=== PATIENT | female | born 1940 | race Caucasian/White ===

== ENCOUNTER 2023-01-04 09:00 | Outpatient (RCR) | payer MEDICARE, BC, SELFPAY ==
--- NOTE | 2022-09-21 16:04 | PT.OPEX ---
PT [place] Outpatient Eval PT [facility] Outpatient Eval Start: 09/20/22 15:48 Freq: Status: Active Protocol: Document 09/20/22 16:03 DANAE (Rec: 09/20/22 16:45 DANAE [id number]) E-signed By Lizet Virk PT Physical Therapy Outpatient Evaluation Insurance Information Recert Due Date 12/18/22 Insurance Name Medicare B,Blue Cross/Blue Shield Medical Diagnosis CERVICAL RADICULOPATHY M54.12 Treating Diagnosis CERVICALGIA M54.2 WEAKNESS [address]53[address] LONNIE PLATA Subjective Subjective PATIENT IS HERE TODAY WITH C/O NECK PAIN THAT RADIATES TO HER LATERAL SHOULDER AND TINGLES INTO HER LEFT JAW LINE . SHE STATES, IT WENT AWAY BUT THEN CAME BACK WHEN THE ASSISTANT BRAND MANAGER HAD ME RAISE MY HEAD FOR AN ECHOCARDIOGRAM AND IT CAME BACK. Pain Comments -08/20 Date of Last Physician Visit 08/24/22 Current Work Status Retired Occupation RETIRED [employer] Preferred Name STEVEN Precautions Therapy Limitations/Systems Review Not Limited Objective Other/Pertinent Objective SPINAL ALIGNMENT/POSTURE : MODERATE FWD HEAD POSTURING WITH SIGNIFICANT THORACIC KYPHOSIS CERVICAL ROM Flexion: WFL Extension: 25% LIMITED Right Rotation: 50%LIMITED Left Rotation: 25% LIMITED Right side bend: 50% LIMITED Left Side bend: 50%LIMITED SHOULDER AROMl: WFL NECK/SHOULDER MMT: Deep neck flexor endurance test: 5SEC Shoulder shrug: R 4/5 L 4/5 Shoulder flexion: R 4-/5 L 4-/ 5 Shoulder abduction: R 4/5 L 4/ 5 Shoulder External Rotation: R 4/5 L 4/5 Shoulder Internal Rotation: R 4/5 L 4/5 Elbow Flexion: R 5/5 L 5/5 Elbow Ext: R 5/5 L 5/5 Thumb Ext: R 4/5 L 4/5 FInger Abd: R 4/5 L 4/5 SPECIAL TEST Spurlings Test: (-) Cervical distraction test: (- ) Neural Tension Test(Median/ Ulnar/Radial): (-) Bakody Sign(C4-C6 Radiculopathy): (+) Vertebral Artery Test: SharpPursher Test (transverse ligament):(-) Alar Lig Test: (-) Shoulder impingement HawkinsKennedy Test: (-) Neer Test: (-) Romy Test: (-) Horizontal Adduction Test: (-) JOINT MOBILITY/PALPATION: LEFT SIDE POINT TENDERNESS ABOUT THE LOWER CERVICAL SPINE/ FACETS, SIDE GLIDE RIGHT TO LEFT PAIN WITH RROT, RSB, FLEX TX: WALK 3 MIN STS X 5 CHIN TUCK X 10 HOLD 5 SEC R/L ROTATION 3 X 10 SEC SHOULDER BCK E[place] 20X SCAP SQUEEZE X 15 HOLD 3 SEC Functional Test Performed & Score 30 SEC STS 4 TUG 25SEC TINETTI 8 Assessment Assessment/Impression PATIENT IS [address] Jennifer PLATA REFERRED TO PHYSICAL THERAPY TO EVAL AND TX CERVICAL RADICULOPATHY. PMHX INCLUDES BUT NOT LIMITED TO AFIB W/COUMADIN, OSTEOPENIA , HTN, CATARACTS, HLD, H/O RIGHT TKA(5YRS), B RTC (>10YRS ). PATIENT LIVES ALONE WITH IN A TWO STORY HOME WITH FINISHED BASEMENT. SHE HAS 1-2 STEPS TO ENTER AND RIGHT ASCENDING RAILING AND LIMITED NEED FOR BASEMENT UNLESS SHE NEEDS SOMETHING FROM [facility]. SHE DOES HER OWN GROCERY SHOPPING BUT HAS A DIFFICULTY RETURNING WITH BAGS AND PUTTING ITEMS AWAY. SHE C/O PAIN W/IN 5 MINUTES OF AWAKENING AND WHEN ROTATING TWD HER LEFT SHOULDER BUT WITH MY ASSESSMENT TODAY SHE HAD PAIN ON LEFT SIDE WITH RIGHT ROTATION, RIGHT SIDE BEND AND CERVICAL FLEXION. THIS INDICATES FACET OPENING CHALLENGE WHICH IS CONSISTENT WITH THE FACET ARTHROPATHY NOTED. SHE DESCRIBES A SEDENTARY LIFESTYLE BUT DOES GET OUT TO PLAY CARDS/BINGO WITH HER GIRLFRIENDS WEEKLY. SHE IS CURRENTLY SLEEPING HER RECLINER AND PERFORMING NEEDLEPOINT ALONG WITH READING ; ALL IN THE RECLINER. SHE KNOWS SHE NEEDS TO GET UP AND WALK MORE BUT FINDS THAT SHE FEELS UNSTEADY WITH PROLONGED WALKING USING THE FURNITURE FOR TOUCH POINTS. SHE IS A SIGNIFICANT RISK FOR FALLS EVIDENCED BY A SCORE OF 4 STS IN 30 SEC, 25 SEC ON TUG AND ON THE TINETTI I PROVIDED HER AN INITIAL HEP TO INCLUDE CERVICAL PARASPINAL STRETCHING, SCAPULAR/UPPER TRUNK STRENGTHENING, AND FUNCTIONAL STRENGTHENING. SHE IS APPROPRIATE FOR SKILLED PHYSICAL THERAPY TO ADDRESS HER CERVICAL PAIN AND RADICULOPATHY, UPPER TRUNK STRENGTHENING, GT, AND BALANCE TRAINING Primary Functional Limitations [facility] AMB TRANSFERS CERVICAL ROM PAIN Plan of Care Rehabilitation Potential Fair Physical Therapy Goals IN 4WEEKS: 1. PATIENT REPORT PAIN <3/10 AT REST. 2. PATIENT WILL IMPROVE HER PAINFREE ROM ABOUT HER CERVICAL SPINE TO ALLOW HER TO PERFORM HER ADL'S, IADL'S AND LIMITED COMMUNITY INTERACTION . 3. PATIENT WILL IMPROVE HER FALL RISK BY DECREASING HER TUG FROM 25 SEC TO 18 SEC IN 8-10 WEEKS. 1. 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 PATIENT WILL IMPROVE HER PAIN TO <3/10 WITH CERVICAL ROM TO ALLOW HER TO SAFELY DRIVE 3. PATIENT WILL BE INDEPENDENT WITH HER HEP Coordination/Communication With Referral Source Treatment Plan/Direct Interventions Gait Training,Joint Mobilization,Manual Therapy, Neuromuscular Re-ed, Therapeutic Activities, Therapeutic Exercises Frequency/Duration 1W8-10 Patient Will Be Discharged From Therapy Completion of LTG(s), Independently Progressing Evaluation Billing Untimed Code Treatment Minutes 20 PT Eval No Charge No Complexity Moderate Certification Information Initial Certification Date 09/20/22 Ending Certification Date 12/18/22 Provider Signature Shows Agreement With POC & Medical Necessity Physician Signature & Date Requested Please Sign/Date Here Physician Comment/Change : Physician NPI Number #
--- NOTE | 2022-12-15 12:23 | PT.OPDNX ---
PT [place] [facility] Daily Note PT [place] [facility] Daily Note Start: 09/20/22 15:48 Freq: Status: Active Protocol: Document 12/15/22 10:12 DANAE (Rec: 12/15/22 12:22 [facility] [id number]) E-signed By Lizet Virk, PT PT OP Daily Progress Note Visit Information Note Type Recert/Progress Note Visit Number [id number] Insurance Information Recert Due Date 12/18/22 Insurance Name Medicare B,Blue Cross/Blue Shield Medical Diagnosis CERVICAL RADICULOPATHY M54.12 Treating Diagnosis CERVICALGIA M54.2 WEAKNESS R53[address] LONNIE PLATA Subjective Subjective PATIENT RETURNS TODAY WITH REPORTS OF, I FEEL LIKE I'M WALKING MORE AND GETTING AROUND BETTER. BUT I'M STILL A HOT MESS. PATIENT DENIES ANY SLIPS TRIPS OR FALLS. Pain Comments 2-3/10) Preferred Name STEVEN Objective Other/Pertinent Objective SPINAL ALIGNMENT/POSTURE : MODERATE FWD HEAD POSTURING WITH SIGNIFICANT THORACIC KYPHOSIS CERVICAL ROM Flexion: WFL Extension: 25% LIMITED Right Rotation: 50%LIMITED Left Rotation: 25% LIMITED Right side bend: 50% LIMITED Left Side bend: 50%LIMITED SHOULDER AROMl: WFL NECK/SHOULDER MMT: Deep neck flexor endurance test: 5SEC Shoulder shrug: R 4/5 L 4/5 Shoulder flexion: R 4-/5 L 4-/ 5 Shoulder abduction: R 4/5 L 4/ 5 Shoulder External Rotation: R 4/5 L 4/5 Shoulder Internal Rotation: R 4/5 L 4/5 Elbow Flexion: R 5/5 L 5/5 Elbow Ext: R 5/5 L 5/5 Thumb Ext: R 4/5 L 4/5 FInger Abd: R 4/5 L 4/5 SPECIAL TEST Spurlings Test: (-) Cervical distraction test: (- ) Neural Tension Test(Median/ Ulnar/Radial): (-) Bakody Sign(C4-C6 Radiculopathy): (+) Vertebral Artery Test: SharpPursher Test (transverse ligament):(-) Alar Lig Test: (-) Shoulder impingement HawkinsKennedy Test: (-) Neer Test: (-) Romy Test: (-) Horizontal Adduction Test: (-) JOINT MOBILITY/PALPATION: LEFT SIDE POINT TENDERNESS ABOUT THE LOWER CERVICAL SPINE/ FACETS, SIDE GLIDE RIGHT TO LEFT PAIN WITH RROT, RSB, FLEX SEC Functional Test Performed & Score 30 SEC STS 4; 12/15/22 6 REPS TUG 25SEC; 12/15/22 18 SEC TINETTI 11/07; 12/15/22 Patient Instructed in Risks/Benefits No Therapeutic Exercise Therapeutic Exercise Minutes (minutes) 45 Therapeutic Exercise: To Restore RECUMBENT BIKE X 5' LEVEL 3 Functional Status TRUNK EXT X 15 40# POSITION 2 STDG BHR X 15 STDG HIP ABD R/L X 15 STDG HIP EXT R/L X 15 STDG MARCHING X 10 STDG TB (GREEN) ROW X 15 STDG TB (GREEN) S'EXT X 15 STDG TB SHRUGS GREEN X 15 STDG TB BICEPS CURLS X 15 SEATED TB TRICEPS X 15 Treatment Minutes Timed Code Treatment Minutes 45 Total Treatment Time 45 Billing Units Therapeutic Exercise Units 3 Plan of Care Physical Therapy Goals IN 4WEEKS: 1. PATIENT REPORT PAIN <3/10 AT REST. 2. PATIENT WILL IMPROVE HER PAINFREE ROM ABOUT HER CERVICAL SPINE TO ALLOW HER TO PERFORM HER ADL'S, IADL'S AND LIMITED COMMUNITY INTERACTION . 3. PATIENT WILL IMPROVE HER FALL RISK BY DECREASING HER TUG FROM 25 SEC TO 18 SEC IN 8-10 WEEKS. 1. 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 PATIENT WILL IMPROVE HER PAIN TO <3/10 WITH CERVICAL ROM TO ALLOW HER TO SAFELY DRIVE 3. PATIENT WILL BE INDEPENDENT WITH HER HEP Daily Plan of Care Continue per POC Recertification Information Initial Certification Date 09/20/22 Recertification Start Date 12/18/22 Recertification Due Date 03/17/23 Reasons to Continue Skilled Therapy MS. PALACIO INITIALLY C/O CERVICAL RADICULOPATHY, NECK PAIN, AND GENERALIZED WEAKNESS . SHE HAS SINCE MANAGED THE SYMPTOMS REGARDING HER CERVICAL ISSUE AND WE HAVE REDIRECTED TO HER GENERALIZED WEAKNESS BY EMPHASIZING CORE AND BLE STRENGTHENING ALONG WITH STABILIZATION FOR IMPROVED UPRIGHT POSTURING AND FALL PREVENTION. SHE HAS PROGRESSED NICELY OVER THE COURSE OF HER CARE IMPROVING HER RISK FOR FALLS BY ROUGHLY 30% ON AVERAGE EVIDENCED BY AN IMPROVEMENT ON HER TUG FROM 25 SEC TO 18 SEC (28%), 30 SEC SIT TO STAND FROM 4 TO 6 REP (50%), AND HER TINETTI SCORE FROM 8 TO 16/28 (29%). SHE IS NOT ABLE TO WALK COMMUNITY DISTANCES NEEDED FOR GROCERIES, WALKING FOR EXERCISE, OR PEER CENTERED EVENTS WITH SIGNIFICANT INCREASE IN FALL RISK D/T FATIGUE AND POOR STAMINA. SHE WOULD BENEFIT FROM CONTINUED SKILLED PHYSICAL THERAPY TO FURTHER IMPROVE HER IMMINENT FALL RISK AND TOLERANCE FOR COMMUNITY AMB. Rehabilitation Potential GOOD Continued Plan of Care and Interventions CORE AND BLE STRENGTHENING AND STABILIZATION, GT ON A VARIETY OF SURFACES, FUNCTIONAL STATIC AND DYNAMIC BALANCE Provider Signature Shows Agreement With POC & Medical Necessity Physician Comment/Change Comment or Changes
== END 2023-01-25 10:53 | disposition home or self-care (01) ==
PROVIDERS: PCP Family Medicine; Visit Provider Family Medicine
DX: M54.12 Radiculopathy, cervical region (principal); Z51.89 Encounter for other specified aftercare
CPT/HCPCS: 97110; 97112; 97140; 97162

== ENCOUNTER 2025-01-16 18:42 | Outpatient (CLI) | payer MEDICARE, BC, SELFPAY | END 2025-01-16 18:43 | disposition home or self-care (01) | LOC: AMB 01-22 16:32 | PROVIDERS: PCP Family Medicine; Visit Provider Emergency Medicine Emergency Medical Services | DX: I49.9 Cardiac arrhythmia, unspecified (principal) | CPT/HCPCS: A0998 ==